=== PATIENT | male | born 1970 | race Caucasian/White ===

== ENCOUNTER 2024-01-04 08:52 | Emergency (ER) | payer OTHER ==
[~2024-01-04] VITALS: Ht 177.8 cm; Wt 102.0 kg
[2024-01-04] MEDS ORDERED: METF500 PO (09:13)
[2024-01-04] MEDS ORDERED: ZYRTEC10 M2 PO (09:13)
[2024-01-04] MEDS ORDERED: LISI5 PO (09:14)
[2024-01-04] MEDS ORDERED: Crestor40 MG PO (09:14)
[2024-01-04] MEDS ORDERED: ZOLP10 PO (09:14)
[2024-01-04 09:22] LABS: Source, Urine Clean Catch
[2024-01-04 09:28] LABS: Appearance, Urine Hazy (Clear); Bilirubin, Urine Neg (Neg); Blood, Urine 3+ (Neg); Color, Urine Yellow (P-Yellow); Glucose Qualitative, Urine Neg (Neg); Ketones, Urine Neg (Neg); Leukocyte Esterase, Urine 3+ (Neg); Nitrite, Urine Neg (Neg); Protein, Urine 2+ (Neg); Specific Gravity, Urine 1.025 (1.003-1.022); Urobilinogen, Urine NORM (Normal)
[2024-01-04 09:37] LABS: Squamous Epithelial Cells Rare /hpf (Few)
[2024-01-04 09:38] LABS: Bacteria Mod /hpf; Calcium Oxalate Crystals Many /hpf
[2024-01-04 10:51] LABS: BASOPHILS ABSOLUTE AUTO 0.04 K/mm3 (0.00-0.23); BASOPHILS PERCENT AUTO 1 % (0-2); EOSINOPHILS ABSOLUTE AUTO 0.34 K/mm3 (0.00-0.68); EOSINOPHILS PERCENT AUTO 6 % (0-6); Hematocrit 43.3 % (37.0-53.0); Hemoglobin 14.5 g/dL (13.5-17.5); IMMATURE GRAN ABSOLUTE AUTO 0.01 K/mm3 (0.00-0.10); IMMATURE GRAN PERCENT AUTO 0 % (0-1); LYMPHOCYTES ABSOLUTE AUTO 2.25 K/mm3 (0.84-5.20); LYMPHOCYTES PERCENT AUTO 38 % (21-46); MONOCYTES ABSOLUTE AUTO 0.58 K/mm3 (0.16-1.47); MONOCYTES PERCENT AUTO 10 % (4-13); Mean Corpuscular HGB 28.9 pg (26.0-34.0); Mean Corpuscular HGB Conc 33.5 g/dL (31.5-36.5); Mean Corpuscular Volume 86 fL (80-100); Mean Platelet Volume 9.2 fL (9.1-12.4); NEUTROPHILS ABSOLUTE AUTO 2.68 K/mm3 (1.96-9.15); NEUTROPHILS PERCENT AUTO 45 % (41-73); Platelet Count 286 K/mm3 (150-400); RDW Coefficient Variation 12.7 % (11.7-14.2); RDW Standard Deviation 39.7 fL (35.1-46.3); Red Blood Cell Count 5.02 M/mm3 (4.30-5.90)
[2024-01-04 11:01] LABS: Albumin/Globulin Ratio 1.2 (0.8-1.8); Bilirubin, Total 0.4 mg/dL (0.1-1.0); Bun/Creatinine Ratio 15.1 (12.0-20.0); Calcium, Blood 8.9 mg/dL (8.5-10.1); Creatinine, Blood 0.79 mg/dL (0.60-1.20); Globulin, Blood 3.3 g/dL (2.2-4.0); Potassium, Blood 4.2 mmol/L (3.5-5.5); Total Protein, Blood 7.3 g/dL (6.4-8.2)
[2024-01-04] MEDS ORDERED: CEFP200 PO (16:39)
== END 2024-01-04 10:55 | disposition left against medical advice (07) ==
LOC: ER 08:52
PROVIDERS: Emergency Medicine
DX: N39.0 Urinary tract infection, site not specified (principal); Z53.29 Procedure and treatment not carried out because of patient's decision for other reasons
CPT/HCPCS: 74176; 80053; 81001; 85025